=== PATIENT | female | born 1945 | race Caucasian/White ===

== ENCOUNTER 2019-10-11 18:05 | Emergency (ER) | payer MEDICARE, OTHER ==
[~2019-10-11 18:05] MED LIST: Sodium Chloride 0.9% 500 ML BAG ONE
[2019-10-11 18:49] LABS: Prothrombin Time 13.5 SEC (12.0-14.7)
[2019-10-11 19:02] LABS: ALT (SGPT) 17 U/L (8-55); AST (SGOT) 49 U/L (5-34); Albumin 2.8 g/dL (3.4-4.8); Alkaline Phosphatase 65 U/L (40-110); Anion Gap 22 mmol/L (10-20); BUN (Urea Nitrogen) 29 mg/dL (9.8-20.1); Bilirubin, Total 0.5 mg/dL (0.2-1.2); Calc. Creatinine Clearance 0 mL/min (70-130); Calcium 8.9 mg/dL (7.8-10.44); Carbon Dioxide 16 mmol/L (23-31); Chloride 101 mmol/L (98-107); Estimated GFR-MDRD 23; Globulin 3.1 g/dL (2.4-3.5); Glucose 99 mg/dL (83-110); Hemoglobin 11.6 g/dL (12.0-16.0); Lymphocytes 1 % (21-51); MDiff Complete? YES; Macrocytosis SLIGHT = 6-15 cells (100X) (0-5/hpf); Magnesium 1.9 mg/dL (1.6-2.6); Mean Corpuscular HGB CONC 31.9 g/dL (32.0-36.0); Mean Corpuscular Hemoglobin 33.2 pg (27.0-31.0); Mean Corpuscular Volume 104.1 fL (78.0-98.0); Mean Platelet Volume 8.6 fL (7.4-10.4); Metamyelocyte 1 % (0-0); Monocytes 1 % (0-10); Neutrophil 94 % (42-75); Platelet Count 71 thou/uL (130-400); Platelet Morphology Comment Appears Decreased; Polychromasia SLIGHT = 2-3 cells (100X) (0-2/hpf); Potassium 4.1 mmol/L (3.5-5.1); Protein, Total 5.9 g/dL (6.0-8.3); RBC Distribution Width 13.4 % (11.5-14.5); Reactive Lymphocytes 3 % (0-10); Red Blood Cell (RBC) Count 3.48 mill/uL (4.20-5.40); Sodium 135 mmol/L (136-145); White Blood Cell (WBC) Count 9.4 thou/uL (4.8-10.8)
--- NOTE | 2019-10-11 19:16 | RAD ---
CHEST ONE VIEW: 10/11/19 INDICATION: History of cough. COMPARISON: Prior exam dated 10/05/19. FINDINGS: The heart size is normal. Vascular calcifications of the aortic arch is similar in appearance. Pulmon arin vasculature is within normal limits. There is a new small right pleural effusion. No acute osseou s abnormality evident. IMPRESSION: New small right pleural effusion. No basia consolidation evident. POS: BH
[2019-10-11 19:20] LABS: CKMB 1.8 ng/mL (0-6.6)
[2019-10-11 19:44] LABS: Bilirubin Small (Negative); Blood, Urine Negative (Negative); Clarity Clear (Clear); Glucose, Urine (Dipstick) Negative (Negative); Leukocyte Negative (Negative); Nitrite Negative (Negative); Protein, Urine (Dipstick) 30 mg/dL (Neg-Trace); Urobilinogen 0.2 mg/dL (Less than 2)
--- NOTE | 2019-10-11 19:46 | CT ---
Exam: Head CT without contrast HISTORY: Dizziness and weakness, x2 weeks. COMPARISON: none FINDINGS: Hemorrhage: 0.7 cm extra-axial hematoma along the left frontal convex city. No parenchymal hemorrhage . Minimal mass effect upon the left frontal lobe. Brain parenchyma: Cortical quach-white matter differentiation is preserved. No significant mass effect or midline shift. Basilar cisterns are patent.Chronic small vessel ischemic changes white matter. Remote lacunar infarct in the left thalamus. Ventricular system: Ventricles and sulci are patent and symmetric. Calvarium: Intact. Large left frontal scalp hematoma. Sinuses and mastoid air cells: Adequate aeration. IMPRESSION: 1. Left scalp hematoma. No calvarial fracture 2. Left frontal extra-axial hematoma with minimal mass effect upon the left frontal lobe.
[2019-10-11] MEDS ORDERED: Aspirin Chewable 81 MG TAB ONE (19:47)
[2019-10-11] MEDS ORDERED: Enoxaparin Sodium 60 MG/0.6 ML SYRINGE ONE (19:47)
[2019-10-11] MEDS ORDERED: Sodium Chloride 0.9% 1,000 ML ONE (19:47)
[2019-10-11] MEDS ORDERED: Ondansetron PF 4 MG/2 ML Vial ONE (19:47)
[2019-10-11 19:50] LABS: Bacteria/HPF 4+ HPF (None Seen); RBC/HPF None Seen HPF (0-3); Squamous Epithelial 0-3 HPF (0-3); WBC/HPF 0-3 HPF (0-3)
--- NOTE | 2019-10-11 19:54 | CT ---
Exam: Chest CT without contrast Abdomen CT without contrast Pelvic CT without contrast HISTORY: Diffuse epigastric pain, nausea and abdominal distention. Supraclavicular lymph nodes. Dyspn ea COMPARISON: Abdomen pelvis CT 02/09/2017 FINDINGS: Chest CT: Limited evaluation of the mediastinum due to the lack of IV contrast. Enlarged right paratracheal lym ph node measures 1.9 x 0.8 cm. No masses or hematomas. Heart size is normal. No significant pericardial fluid. Atherosclerosis of the visualized thoracic and abdominal aorta. No periaortic fat stranding. There is a large, necrotic right supraclavicular lymph node measuring 2.4 x 4.1 cm. Additional right axillary lymph nodes are noted. [employer] lymph node measures 1.6 x 1.4 cm. No significant left axillary lymphadenopathy. There does appear to be diffuse edema involving the right breast. Richard elate for possible inflammatory breast cancer. Trachea and central bronchi are patent. Small right-sided pleural effusion. Dependent atelectatic leonard nges in the right lower lobe are suspected. Component of aspiration or pneumonia cannot be excluded. No suspicious masses, nodules or consolidation. In the left lung, nonspecific groundglass o pacities in the apex. Linear opacities in the left lower lobe may represent areas of scar or atelectasis. Ill-defined nodule in the left lower lobe measures 0.6 x 0.3 cm. Questionable right hilar lymphadenopathy measuring 1.4 x [address]: Limited evaluation of the solid organs by the lack of IV contrast. Grossly the liver, spleen, pancrea s and left adrenal gland is unremarkable. Possible hyperdense nodule involving the right adrenal gland measuring 0.9 cm with an attenuation coefficient of 36 Hounsfield units. There does appear to b e multiple lymph nodes along the gastrohepatic ligament. [employer] lymph node measures 0.8 x 1.3 cm. Additional peripancreatic lymph nodes may be present. There appears to be lymphadenopathy ant erior to the aorta and posterior to the pancreas, measuring 3.0 x 1.9 cm Peripherally calcified exophytic hypodense lesion in the right kidney, measures 1.8 cm. Bilaterally n o obstructive uropathy. There is perihepatic and perisplenic fluid. There is fluid in both paracolic gutters and mild edema t hroughout the mesentery. No evidence of free air. Limited evaluation of the alimentary canal by the lack of oral contrast. No evidence of bowel obstruc tion. Limited evaluation of the ileocecal junction. Normal caliber appendix. Ileocecal junction is unremarkable. Limited evaluation of the colon due to inadequate distention. Mucosal thickening may be due to inadequate distention. Nonemergent colonoscopy is recommended. There is diverticulosis, without evidence of diverticulitis. Pelvic CT: There is complex fluid in the pelvis. Uterus is surgically absent. Urinary bladder is unremarkable. T here is evidence of edema in the soft tissues, worrisome for anasarca in the thorax and abdomen and pelvis. There appears be lymphadenopathy along the right common iliac chain measuring 1.3 x 2.4 cm. A dditional lymphadenopathy along the right external iliac chain is noted. Osseous structures: No definite osteolytic or osteoblastic lesions. IMPRESSION: 1. Extensive lymphadenopathy in the chest, abdomen and pelvis as described above. 2. Edematous change in the right breast. Correlate for inflammatory breast cancer. 3. Small right-sided pleural effusion. Results of the head CT, chest/abdomen and pelvic CT discussed with Dr. Ham, 10/11/2019 at 7:54 PM Code CR Transcribed Date/Time: 10/11/2019 8:05 PM
== END 2019-10-11 21:26 | disposition short-term general hospital (02) ==
LOC: MADERS 18:05
DX: I21.4 Non-ST elevation (NSTEMI) myocardial infarction (principal); I62.00 Nontraumatic subdural hemorrhage, unspecified; R59.1 Generalized enlarged lymph nodes; E78.5 Hyperlipidemia, unspecified; I10 Essential (primary) hypertension; Z87.891 Personal history of nicotine dependence; Z79.899 Other long term (current) drug therapy
CPT/HCPCS: 36415; 70450; 71045; 71250; 74177; 80053; 81003; 81015; 82553; 83735; 83880; 84484; 85025; 85610; 87040; 93005; 96361; 96372; 96374; J1650; J2405; J7050